=== PATIENT | female | born 1970 | race Caucasian/White ===

== ENCOUNTER 2019-01-06 13:20 | Day surgery (SDC) | payer MEDICAID ==
[2019-01-06] MEDS ORDERED: PROPOFOL 40 ML (15:57)
== END 2019-01-06 16:47 | disposition home or self-care (01) ==
LOC: GIL 13:20
DX: Z12.11 Encounter for screening for malignant neoplasm of colon (principal); K64.8 Other hemorrhoids; K57.30 Diverticulosis of large intestine without perforation or abscess without bleeding; R10.10 Upper abdominal pain, unspecified; Z85.3 Personal history of malignant neoplasm of breast
CPT/HCPCS: 43239; 88305; 88312